=== PATIENT | female | born 1970 | race African-American/Black ===

== ENCOUNTER 2018-08-23 17:15 | Inpatient (IN) ==
[2018-08-23] MEDS ORDERED: ONDANSETRON 4 MG/2 ML VIAL IV STA (17:25)
[2018-08-23] MEDS ORDERED: SODIUM CHLORIDE 0.9% 1,000 ML IV STA (17:25)
[2018-08-23] MEDS ORDERED: ASPIRIN CHEW 81 MG TABLET PO STA (17:26)
[2018-08-23] MEDS ORDERED: MORPHINE 4 MG/1 ML VIAL IV STA (17:31)
[2018-08-23 17:48] LABS: Basophils % 0.4 % (0.0-0.8); Eosinophils % 0.1 % (0.00-10.9); Hematocrit 47.9 VOL% (35.7-47.0); Hemoglobin 15.2 GM/DL (12.0-16.0); Immature Granulocytes % 0.5 %; Immature Granulocytes Absolute 0.05 #; Lymphocytes # 1.7 10*3/uL (1.4-4.0); Lymphocytes % 15.7 % (21.3-54.2); Mean Corpuscular HGB Conc 31.7 GM/DL (32-36); Mean Corpuscular Volume 92.8 FL (87-102); Mean Platelet Volume 11.6 FL (9.6-12.0); Monocytes % 3.6 % (1.7-12.7); Neutrophils % 79.7 % (38.7-73.9); Platelet Count 298 T/CUMM (130-400); Red Blood Count 5.16 MC/CUMM (3.8-5.5); Red Cell Distribution Width 14.4 % (9.3-17.3); White Blood Count 10.9 T/CUMM (4-12)
[2018-08-23 18:00] LABS: Albumin 4.1 G/DL (3.4-5.0); Bilirubin,Total 0.4 MG/DL (0.2-1.0); Calcium 9.7 MG/DL (8.5-10.1); Osmolality,Calculated 283.5 MOS/KG (273-304); Total Protein 9.2 G/DL (6.4-8.3)
[2018-08-23 19:21] LABS: Amorphous Crystals,Urine Occasional /HPF (Few); Apearance,Urine CLEAR (Clear); Barbiturates Screen,Urine Negative (Negative); Benzodiazepines Screen,Urine Negative (Negative); Bilirubin,Urine Negative (Negative); Blood, Urine Negative (Negative); Cannabinoid Screen,Urine Negative (Negative); Glucose,Urine (UA) Negative (Negative); Ketones,Urine Negative (Negative); Nitrite,Urine Negative (Negative); Opiate Screen,Urine Negative (Negative); Phencyclidine Screen,Urine Negative (Negative); Protein,Urine 100 MG/DL; Squamous Epithelial Cell,Urine Occasional /HPF (0-10); Urine Color Yellow (Yellow); Urine Specific Gravity > 1.060 (1.001-1.035); Urine Urobilinogen < 2.0 EU/DL (0.2-1.0)
[2018-08-23] MEDS ORDERED: ONDANSETRON 4 MG/2 ML VIAL IV PRN (21:10)
[2018-08-23] MEDS: LACTATED RINGERS 1,000 ML IV SCH (21:43)
[2018-08-23] MEDS: MORPHINE 4 MG/1 ML VIAL IV PRN (21:51)
[2018-08-24] MEDS: MORPHINE 4 MG/1 ML VIAL IV PRN ×6 (02:25→21:29)
[2018-08-24] MEDS: LACTATED RINGERS 1,000 ML IV SCH ×2 (10:39→13:15)
[2018-08-24] MEDS: FUROSEMIDE 20 MG TABLET PO SCH (18:15)
[2018-08-24] MEDS: amLODIPine 10 MG TABLET PO SCH (18:15)
[2018-08-25] MEDS: LACTATED RINGERS 1,000 ML IV SCH ×4 (00:43→21:19)
[2018-08-25] MEDS: MORPHINE 4 MG/1 ML VIAL IV PRN ×5 (01:33→20:30)
[2018-08-25] MEDS ORDERED: hydrALAZINE 20 MG/1 ML VIAL IV ONE (04:57)
[2018-08-25] MEDS ORDERED: ALBUTEROL/IPRATROPIUM 3 ML NEB RESP TX PRN (08:12)
[2018-08-25] MEDS: FUROSEMIDE 20 MG TABLET PO SCH (08:34)
[2018-08-25] MEDS: CLORAZEPATE 3.75 MG TABLET PO SCH ×2 (08:34→20:33)
[2018-08-25] MEDS: amLODIPine 10 MG TABLET PO SCH (08:35)
[2018-08-25] MEDS ORDERED: METOPROLOL TARTRATE 25 MG TABLET PO SCH (09:00)
[2018-08-25] MEDS ORDERED: hydrALAZINE 25 MG TABLET PO SCH (09:00)
[2018-08-25 09:05] LABS: Basophils % 0.1 % (0.0-0.8); Eosinophils % 0.1 % (0.00-10.9); Immature Granulocytes % 0.4 %; Immature Granulocytes Absolute 0.03 #; Mean Corpuscular Volume 96.8 FL (87-102); Red Cell Distribution Width 14.7 % (9.3-17.3)
[2018-08-25 09:10] LABS: Hematocrit 39.7 VOL% (35.7-47.0); Lymphocytes % 12.6 % (21.3-54.2); Mean Corpuscular HGB Conc 30.5 GM/DL (32-36); Mean Platelet Volume 11.9 FL (9.6-12.0); Monocytes % 6.1 % (1.7-12.7); Neutrophils % 80.7 % (38.7-73.9); White Blood Count 7.9 T/CUMM (4-12)
[2018-08-25 09:19] LABS: Hemoglobin 12.1 GM/DL (12.0-16.0); Platelet Count 230 T/CUMM (130-400)
[2018-08-25 09:21] LABS: Calcium 8.9 MG/DL (8.5-10.1); Osmolality,Calculated 277.7 MOS/KG (273-304)
[2018-08-25 09:27] LABS: Hypochromasia 1+; Lymphocytes 14 % (20-55); Platelet Estimate Adequate; Segmented Neutrophils 81 % (50-85); Total Cells Counted 100
[2018-08-25] MEDS: METOPROLOL TARTRATE 5 MG/5 ML VIAL IV SCH ×2 (11:12→12:24)
[2018-08-25] MEDS ORDERED: GLUCAGON 1 MG VIAL IM PRN (13:10)
[2018-08-25] MEDS ORDERED: DEXTROSE 50% 25 GM/50 ML VIAL IV PRN (13:10)
[2018-08-25] MEDS ORDERED: NICOTINE 21 MG/24 HR PATCH TRANSDERM PRN (13:11)
[2018-08-25 14:11] LABS: Troponin I < 0.015 NG/ML (0.00-0.045)
[2018-08-25] MEDS: PANTOPRAZOLE 40 MG VIAL IV SCH (15:04)
[2018-08-25] MEDS: INSULIN REGULAR 100 UNIT/ML SUBCUT SCH (17:13)
[2018-08-25] MEDS: BACLOFEN 10 MG TABLET PO SCH (20:33)
[2018-08-25] MEDS: levETIRAcetam 500 MG TABLET PO SCH (20:33)
[2018-08-25] MEDS: valACYclovir 500 MG TABLET PO SCH (20:33)
[2018-08-26] MEDS: INSULIN REGULAR 100 UNIT/ML SUBCUT SCH ×4 (00:35→18:24)
[2018-08-26] MEDS: MORPHINE 4 MG/1 ML VIAL IV PRN ×6 (01:05→23:49)
[2018-08-26] MEDS: LACTATED RINGERS 1,000 ML IV SCH ×4 (02:42→21:36)
[2018-08-26 06:00] LABS: Risk Ratio 2.52; VLDL CHOLESTEROL 17.8 MG/DL
[2018-08-26] MEDS: LISINOPRIL 20 MG TABLET PO SCH (08:48)
[2018-08-26] MEDS: FUROSEMIDE 20 MG TABLET PO SCH (08:48)
[2018-08-26] MEDS: amLODIPine 10 MG TABLET PO SCH (08:50)
[2018-08-26] MEDS: valACYclovir 500 MG TABLET PO SCH ×2 (08:50→20:37)
[2018-08-26] MEDS: CLORAZEPATE 3.75 MG TABLET PO SCH ×2 (08:50→20:37)
[2018-08-26] MEDS: FLUoxetine 20 MG CAPSULE PO SCH (08:50)
[2018-08-26] MEDS: levETIRAcetam 500 MG TABLET PO SCH ×2 (08:50→20:38)
[2018-08-26] MEDS: SIMVASTATIN 10 MG TABLET PO SCH (08:50)
[2018-08-26] MEDS ORDERED: LISINOPRIL 20 MG TABLET PO SCH (09:00)
[2018-08-26] MEDS ORDERED: hydroCHLOROthiazide 12.5 MG CAPSULE PO SCH (09:00)
[2018-08-26] MEDS: PANTOPRAZOLE 40 MG VIAL IV SCH (10:00)
[2018-08-26] MEDS: BACLOFEN 10 MG TABLET PO SCH (20:37)
[2018-08-27] MEDS: INSULIN REGULAR 100 UNIT/ML SUBCUT SCH ×4 (00:19→17:54)
[2018-08-27] MEDS: MORPHINE 4 MG/1 ML VIAL IV PRN ×4 (04:14→22:55)
[2018-08-27] MEDS: LACTATED RINGERS 1,000 ML IV SCH ×3 (05:30→19:00)
[2018-08-27 05:48] LABS: Basophils % 0.2 % (0.0-0.8); Eosinophils # 0.1 10*3/uL (0.0-0.87); Eosinophils % 1.1 % (0.00-10.9); Hematocrit 36.5 VOL% (35.7-47.0); Hemoglobin 11.2 GM/DL (12.0-16.0); Immature Granulocytes % 0.4 %; Immature Granulocytes Absolute 0.02 #; Lymphocytes # 1.3 10*3/uL (1.4-4.0); Lymphocytes % 23.5 % (21.3-54.2); Mean Corpuscular HGB Conc 30.7 GM/DL (32-36); Mean Corpuscular Volume 96.6 FL (87-102); Mean Platelet Volume 11.2 FL (9.6-12.0); Neutrophils % 67.8 % (38.7-73.9); Platelet Count 204 T/CUMM (130-400); Red Blood Count 3.78 MC/CUMM (3.8-5.5); Red Cell Distribution Width 14.2 % (9.3-17.3); White Blood Count 5.6 T/CUMM (4-12)
[2018-08-27 06:16] LABS: Calcium 8.9 MG/DL (8.5-10.1); Osmolality,Calculated 274.7 MOS/KG (273-304)
[2018-08-27] MEDS: hydrALAZINE 25 MG TABLET PO SCH ×4 (09:10→21:50)
[2018-08-27] MEDS: hydroCHLOROthiazide 25 MG TABLET PO SCH (09:32)
[2018-08-27] MEDS: LISINOPRIL 20 MG TABLET PO SCH (09:32)
[2018-08-27] MEDS: amLODIPine 10 MG TABLET PO SCH (09:32)
[2018-08-27] MEDS: valACYclovir 500 MG TABLET PO SCH ×3 (09:32→21:50)
[2018-08-27] MEDS: FUROSEMIDE 20 MG TABLET PO SCH ×2 (09:32→09:39)
[2018-08-27] MEDS: SIMVASTATIN 10 MG TABLET PO SCH ×2 (09:32→09:59)
[2018-08-27] MEDS: FLUoxetine 20 MG CAPSULE PO SCH ×2 (09:33→10:00)
[2018-08-27] MEDS: PANTOPRAZOLE 40 MG VIAL IV SCH (09:33)
[2018-08-27] MEDS: CLORAZEPATE 3.75 MG TABLET PO SCH ×3 (09:33→21:50)
[2018-08-27] MEDS: levETIRAcetam 500 MG TABLET PO SCH ×3 (09:33→21:50)
[2018-08-27] MEDS ORDERED: cefOXitin 2,000 MG in SYRINGE 1 EACH IV ONE (09:54)
[2018-08-27] MEDS ORDERED: LIDOCAINE 1%/EPI INJ 20 ML VIAL ONE (11:20)
[2018-08-27] MEDS ORDERED: BUPIVACAINE MPF 0.25% /EPI 30 ML VIAL ONE (11:20)
[2018-08-27] MEDS ORDERED: BUPIVACAINE MPF 0.25% 30 ML VIAL ONE (14:21)
[2018-08-27] MEDS ORDERED: ALBUTEROL/IPRATROPIUM 3 ML NEB RESP TX ONE (14:22)
[2018-08-27 14:26] LABS: Apearance,Urine CLEAR (Clear); Bacteria,Urine Occasional /HPF (Few); Bilirubin,Urine Negative (Negative); Blood, Urine Negative (Negative); Glucose,Urine (UA) Negative (Negative); Ketones,Urine 20 mg/dL (Negative); Mucus,Urine Occasional /LPF (Occasional); Nitrite,Urine Negative (Negative); Protein,Urine Negative; RBC,Urine 3 /HPF (0-4); Squamous Epithelial Cell,Urine Occasional /HPF (0-10); Urine Color Straw (Yellow); Urine Specific Gravity 1.006 (1.001-1.035); Urine Urobilinogen < 2.0 EU/DL (0.2-1.0); WBC,Urine <1 /HPF (0-6)
[2018-08-27] MEDS ORDERED: SEVOFLURANE 1 UNIT/15 MINUTE INH ONE (14:36)
[2018-08-27] MEDS ORDERED: ALBUMIN 5% 12.5 GM/250 ML VIAL IV ONE (14:36)
[2018-08-27] MEDS ORDERED: PROPOFOL 200 MG/20 ML VIAL IV ONE (14:36)
[2018-08-27] MEDS ORDERED: DEXAMETHASONE 4 MG/1 ML VIAL ONE (14:37)
[2018-08-27] MEDS ORDERED: PHENYLEPHRINE 10 MG/1 ML VIAL IV ONE (14:37)
[2018-08-27] MEDS ORDERED: MIDAZOLAM 2 MG/2 ML VIAL ONE (14:37)
[2018-08-27] MEDS ORDERED: ONDANSETRON 4 MG/2 ML VIAL ONE (14:37)
[2018-08-27] MEDS ORDERED: GLYCOPYRROLATE 0.4 MG/2 ML VIAL ONE (14:37)
[2018-08-27] MEDS ORDERED: fentaNYL 100 MCG/2 ML VIAL ONE (14:37)
[2018-08-27] MEDS ORDERED: HYDROmorphone 2 MG/1 ML VIAL ONE ×2 (14:37→15:38)
[2018-08-27] MEDS ORDERED: LACTATED RINGERS 1,000 ML IV ONE (14:38)
[2018-08-27] MEDS ORDERED: PHENYLEPHRINE 1 MG/10 ML SYRINGE IV ONE (14:38)
[2018-08-27] MEDS ORDERED: ROCURONIUM 100 MG/10 ML VIAL IV ONE (14:38)
[2018-08-27] MEDS ORDERED: NEOSTIGMINE 10 MG/10 ML VIAL ONE (14:38)
[2018-08-27] MEDS ORDERED: SUCCINYLCHOLINE 200 MG/10 ML VIAL ONE (14:38)
[2018-08-27] MEDS ORDERED: HYDROmorphone 2 MG/1 ML VIAL IV ONE (15:38)
[2018-08-27] MEDS: BACLOFEN 10 MG TABLET PO SCH (21:50)
[2018-08-28] MEDS: INSULIN REGULAR 100 UNIT/ML SUBCUT SCH ×4 (01:24→18:59)
[2018-08-28] MEDS: MORPHINE 4 MG/1 ML VIAL IV PRN ×5 (02:35→21:39)
[2018-08-28] MEDS ORDERED: SODIUM CHLORIDE 0.9% 250 ML IV ONE (03:40)
[2018-08-28 04:09] LABS: Basophils % 0.3 % (0.0-0.8); Eosinophils % 0.3 % (0.00-10.9); Hematocrit 35.9 VOL% (35.7-47.0); Hemoglobin 11.4 GM/DL (12.0-16.0); Immature Granulocytes % 0.4 %; Immature Granulocytes Absolute 0.03 #; Lymphocytes # 0.8 10*3/uL (1.4-4.0); Lymphocytes % 11.6 % (21.3-54.2); Mean Corpuscular HGB Conc 31.8 GM/DL (32-36); Mean Corpuscular Volume 94.2 FL (87-102); Mean Platelet Volume 11.4 FL (9.6-12.0); Monocytes % 5.8 % (1.7-12.7); Neutrophils % 81.6 % (38.7-73.9); Platelet Count 232 T/CUMM (130-400); Red Blood Count 3.81 MC/CUMM (3.8-5.5); Red Cell Distribution Width 13.8 % (9.3-17.3); White Blood Count 6.7 T/CUMM (4-12)
[2018-08-28] MEDS: LACTATED RINGERS 1,000 ML IV SCH ×3 (04:12→21:34)
[2018-08-28 04:42] LABS: Alanine Aminotransferase < 9 U/L (13-56); Albumin 2.5 G/DL (3.4-5.0); Alkaline Phosphatase 61 U/L (45-117); Aspartate Amino Transferase 10 U/L (0-37); Blood Urea Nitrogen 14 MG/DL (7-18); Calcium 8.3 MG/DL (8.5-10.1); Glucose 107 MG/DL (74-106); Osmolality,Calculated 273.8 MOS/KG (273-304); Total Protein 5.7 G/DL (6.4-8.3)
[2018-08-28 04:46] LABS: Hypochromasia Slight; Platelet Estimate Normal
[2018-08-28] MEDS: valACYclovir 500 MG TABLET PO SCH ×2 (09:53→21:34)
[2018-08-28] MEDS: FLUoxetine 20 MG CAPSULE PO SCH (09:53)
[2018-08-28] MEDS: FUROSEMIDE 20 MG TABLET PO SCH (09:53)
[2018-08-28] MEDS: levETIRAcetam 500 MG TABLET PO SCH ×2 (09:53→21:34)
[2018-08-28] MEDS: CLORAZEPATE 3.75 MG TABLET PO SCH ×2 (09:53→21:34)
[2018-08-28] MEDS: LISINOPRIL 20 MG TABLET PO SCH (09:53)
[2018-08-28] MEDS: PANTOPRAZOLE 40 MG TABLET PO SCH (09:53)
[2018-08-28] MEDS: hydrALAZINE 25 MG TABLET PO SCH ×3 (09:53→21:34)
[2018-08-28] MEDS: amLODIPine 10 MG TABLET PO SCH (09:53)
[2018-08-28] MEDS: hydroCHLOROthiazide 25 MG TABLET PO SCH (09:53)
[2018-08-28] MEDS: SIMVASTATIN 10 MG TABLET PO SCH (10:37)
[2018-08-28] MEDS ORDERED: MAGNESIUM SULF RIDER 4 GM in PREMIX 1 EACH IV PRN (13:34)
[2018-08-28] MEDS: MAGNESIUM SULF RIDER 2 GM in PREMIX 1 EACH IV PRN ×2 (15:26→17:48)
[2018-08-28] MEDS: BACLOFEN 10 MG TABLET PO SCH (21:34)
[2018-08-29] MEDS: MORPHINE 4 MG/1 ML VIAL IV PRN ×6 (00:50→21:26)
[2018-08-29] MEDS: INSULIN REGULAR 100 UNIT/ML SUBCUT SCH ×4 (01:16→18:41)
[2018-08-29] MEDS: LACTATED RINGERS 1,000 ML IV SCH ×2 (05:34→14:50)
[2018-08-29] MEDS: FUROSEMIDE 20 MG TABLET PO SCH (09:19)
[2018-08-29] MEDS: CLORAZEPATE 3.75 MG TABLET PO SCH ×2 (09:19→21:24)
[2018-08-29] MEDS: valACYclovir 500 MG TABLET PO SCH ×2 (09:19→21:24)
[2018-08-29] MEDS: LISINOPRIL 20 MG TABLET PO SCH (09:19)
[2018-08-29] MEDS: amLODIPine 10 MG TABLET PO SCH (09:20)
[2018-08-29] MEDS: FLUoxetine 20 MG CAPSULE PO SCH (09:20)
[2018-08-29] MEDS: hydroCHLOROthiazide 25 MG TABLET PO SCH (09:20)
[2018-08-29] MEDS: hydrALAZINE 25 MG TABLET PO SCH ×3 (09:20→21:24)
[2018-08-29] MEDS: levETIRAcetam 500 MG TABLET PO SCH ×2 (09:21→21:24)
[2018-08-29] MEDS: SIMVASTATIN 10 MG TABLET PO SCH (09:21)
[2018-08-29] MEDS: PANTOPRAZOLE 40 MG TABLET PO SCH (09:21)
[2018-08-29] MEDS: BACLOFEN 10 MG TABLET PO SCH (21:24)
[2018-08-30] MEDS: INSULIN REGULAR 100 UNIT/ML SUBCUT SCH ×4 (00:21→18:17)
[2018-08-30] MEDS: MORPHINE 4 MG/1 ML VIAL IV PRN ×7 (01:39→21:58)
[2018-08-30] MEDS: LACTATED RINGERS 1,000 ML IV SCH ×2 (01:51→04:20)
[2018-08-30 05:00] LABS: Basophils % 0.2 % (0.0-0.8); Eosinophils # 0.1 10*3/uL (0.0-0.87); Eosinophils % 0.9 % (0.00-10.9); Hematocrit 31.8 VOL% (35.7-47.0); Immature Granulocytes % 0.6 %; Immature Granulocytes Absolute 0.04 #; Lymphocytes # 0.9 10*3/uL (1.4-4.0); Lymphocytes % 14.3 % (21.3-54.2); Mean Corpuscular HGB Conc 31.4 GM/DL (32-36); Mean Corpuscular Volume 94.4 FL (87-102); Mean Platelet Volume 11.3 FL (9.6-12.0); Monocytes % 6.8 % (1.7-12.7); Neutrophils % 77.2 % (38.7-73.9); Platelet Count 206 T/CUMM (130-400); Red Blood Count 3.37 MC/CUMM (3.8-5.5); Red Cell Distribution Width 14.2 % (9.3-17.3); White Blood Count 6.4 T/CUMM (4-12)
[2018-08-30 05:25] LABS: Calcium 8.7 MG/DL (8.5-10.1); Osmolality,Calculated 274.7 MOS/KG (273-304)
[2018-08-30 05:41] LABS: Anisocytosis Slight; Microcytosis 1+; Platelet Estimate Normal
[2018-08-30] MEDS: LISINOPRIL 20 MG TABLET PO SCH (08:51)
[2018-08-30] MEDS: amLODIPine 10 MG TABLET PO SCH (08:51)
[2018-08-30] MEDS: hydroCHLOROthiazide 25 MG TABLET PO SCH (08:51)
[2018-08-30] MEDS: FUROSEMIDE 20 MG TABLET PO SCH (08:52)
[2018-08-30] MEDS: SIMVASTATIN 10 MG TABLET PO SCH (08:52)
[2018-08-30] MEDS: PANTOPRAZOLE 40 MG TABLET PO SCH (08:52)
[2018-08-30] MEDS: valACYclovir 500 MG TABLET PO SCH ×2 (08:52→21:57)
[2018-08-30] MEDS: levETIRAcetam 500 MG TABLET PO SCH ×2 (08:52→21:57)
[2018-08-30] MEDS: FLUoxetine 20 MG CAPSULE PO SCH (08:52)
[2018-08-30] MEDS: hydrALAZINE 25 MG TABLET PO SCH ×3 (08:52→21:57)
[2018-08-30] MEDS: CLORAZEPATE 3.75 MG TABLET PO SCH ×2 (08:52→21:57)
[2018-08-30] MEDS: ENOXAPARIN 40 MG/0.4 ML SYRINGE SUBCUT SCH (11:26)
[2018-08-30] MEDS: BACLOFEN 10 MG TABLET PO SCH (21:57)
[2018-08-31] MEDS: INSULIN REGULAR 100 UNIT/ML SUBCUT SCH ×4 (00:21→17:38)
[2018-08-31] MEDS: MORPHINE 4 MG/1 ML VIAL IV PRN ×6 (03:11→22:36)
[2018-08-31 04:25] LABS: Basophils % 0.3 % (0.0-0.8); Eosinophils # 0.1 10*3/uL (0.0-0.87); Eosinophils % 1.1 % (0.00-10.9); Hematocrit 32.3 VOL% (35.7-47.0); Immature Granulocytes % 1.2 %; Immature Granulocytes Absolute 0.09 #; Lymphocytes # 1.2 10*3/uL (1.4-4.0); Lymphocytes % 16.7 % (21.3-54.2); Mean Corpuscular Volume 94.7 FL (87-102); Monocytes % 9.2 % (1.7-12.7); Neutrophils % 71.5 % (38.7-73.9); Platelet Count 237 T/CUMM (130-400); Red Blood Count 3.41 MC/CUMM (3.8-5.5); Red Cell Distribution Width 13.9 % (9.3-17.3); White Blood Count 7.4 T/CUMM (4-12)
[2018-08-31 04:59] LABS: Eosinophils 1 % (0-10); Lymphocytes 21 % (20-55); Segmented Neutrophils 75 % (50-85); Total Cells Counted 100
[2018-08-31 05:00] LABS: Anisocytosis 1+; Platelet Estimate Adequate
[2018-08-31] MEDS ORDERED: POLYETHYLENE GLYCOL POWDER 17 GM PACK PO PRN (09:00)
[2018-08-31] MEDS: DOCUSATE SODIUM 100 MG CAPSULE PO SCH ×2 (09:23→22:59)
[2018-08-31] MEDS: FUROSEMIDE 20 MG TABLET PO SCH (09:23)
[2018-08-31] MEDS: amLODIPine 10 MG TABLET PO SCH (09:23)
[2018-08-31] MEDS: PANTOPRAZOLE 40 MG TABLET PO SCH (09:23)
[2018-08-31] MEDS: FLUoxetine 20 MG CAPSULE PO SCH (09:23)
[2018-08-31] MEDS: LISINOPRIL 20 MG TABLET PO SCH (09:23)
[2018-08-31] MEDS: levETIRAcetam 500 MG TABLET PO SCH ×2 (09:23→21:26)
[2018-08-31] MEDS: valACYclovir 500 MG TABLET PO SCH ×2 (09:23→21:26)
[2018-08-31] MEDS: CLORAZEPATE 3.75 MG TABLET PO SCH ×2 (09:23→21:26)
[2018-08-31] MEDS: hydroCHLOROthiazide 25 MG TABLET PO SCH (09:23)
[2018-08-31] MEDS: hydrALAZINE 25 MG TABLET PO SCH ×3 (09:23→21:26)
[2018-08-31] MEDS: ENOXAPARIN 40 MG/0.4 ML SYRINGE SUBCUT SCH (09:24)
[2018-08-31] MEDS: SIMVASTATIN 10 MG TABLET PO SCH (09:24)
[2018-08-31] MEDS: BACLOFEN 10 MG TABLET PO SCH (21:26)
[2018-09-01] MEDS: INSULIN REGULAR 100 UNIT/ML SUBCUT SCH ×3 (00:25→13:49)
[2018-09-01] MEDS: MORPHINE 4 MG/1 ML VIAL IV PRN ×2 (06:27→09:40)
[2018-09-01] MEDS: PANTOPRAZOLE 40 MG TABLET PO SCH (09:37)
[2018-09-01] MEDS: FLUoxetine 20 MG CAPSULE PO SCH (09:37)
[2018-09-01] MEDS: FUROSEMIDE 20 MG TABLET PO SCH (09:37)
[2018-09-01] MEDS: hydrALAZINE 25 MG TABLET PO SCH (09:37)
[2018-09-01] MEDS: DOCUSATE SODIUM 100 MG CAPSULE PO SCH (09:37)
[2018-09-01] MEDS: CLORAZEPATE 3.75 MG TABLET PO SCH (09:37)
[2018-09-01] MEDS: LISINOPRIL 20 MG TABLET PO SCH (09:37)
[2018-09-01] MEDS: hydroCHLOROthiazide 25 MG TABLET PO SCH (09:37)
[2018-09-01] MEDS: SIMVASTATIN 10 MG TABLET PO SCH (09:37)
[2018-09-01] MEDS: valACYclovir 500 MG TABLET PO SCH (09:38)
[2018-09-01] MEDS: levETIRAcetam 500 MG TABLET PO SCH (09:38)
[2018-09-01] MEDS: amLODIPine 10 MG TABLET PO SCH (09:38)
[2018-09-01] MEDS: ENOXAPARIN 40 MG/0.4 ML SYRINGE SUBCUT SCH (09:40)
[2018-09-01] MEDS ORDERED: BISACODYL 10 MG SUPP RECTAL PRN (11:15)
[2018-09-01 11:54] VITALS: BP 101/61
[2018-09-01] MEDS ORDERED: SODIUM PHOSPHATE ENEMA 133 ML BOTTLE RECTAL PRN (15:09)
[2018-09-01] MEDS ORDERED: SODIUM PHOSPHATE ENEMA 133 ML BOTTLE RECTAL ONE (15:11)
== END 2018-09-01 16:12 | disposition home health service (06) | DRG 230 ==
LOC: EDUNIT# → N.ED 17:15 → N.EDINP 18:46 → N.3E 20:30 → N.CC 08-27 16:25 → N.3E 08-29 17:08
PROVIDERS: ADMIT Surgery; ATTEND Surgery

== ENCOUNTER 2018-10-02 17:48 | Observation (INO) ==
[2018-10-02] MEDS ORDERED: ONDANSETRON 4 MG/2 ML VIAL IV STA (18:42)
[2018-10-02] MEDS ORDERED: KETOROLAC 30 MG/1 ML VIAL IV STA (18:42)
[2018-10-02] MEDS ORDERED: SODIUM CHLORIDE 0.9% 500 ML IV STA (18:42)
[2018-10-02] MEDS ORDERED: BICILLIN LA 2,400,000 UNIT/4 ML SYRINGE IM STA (18:42)
[2018-10-02 19:13] LABS: Basophils % 0.4 % (0.0-0.8); Eosinophils # 0.1 10*3/uL (0.0-0.87); Eosinophils % 0.9 % (0.00-10.9); Hematocrit 45.3 VOL% (35.7-47.0); Hemoglobin 14.5 GM/DL (12.0-16.0); Immature Granulocytes % 0.9 %; Lymphocytes # 2.7 10*3/uL (1.4-4.0); Lymphocytes % 25.7 % (21.3-54.2); Mean Corpuscular Volume 90.4 FL (87-102); Mean Platelet Volume 11.3 FL (9.6-12.0); Monocytes % 5.1 % (1.7-12.7); Platelet Count 319 T/CUMM (130-400); Red Blood Count 5.01 MC/CUMM (3.8-5.5); Red Cell Distribution Width 14.6 % (9.3-17.3); White Blood Count 10.7 T/CUMM (4-12)
[2018-10-02 19:36] LABS: Albumin 3.9 G/DL (3.4-5.0); Bilirubin,Total 0.5 MG/DL (0.2-1.0); Osmolality,Calculated 279.1 MOS/KG (273-304)
[2018-10-02] MEDS ORDERED: SODIUM CHLORIDE 0.9% 1,000 ML IV STA ×2 (19:42→20:27)
[2018-10-02] MEDS ORDERED: MAGNESIUM SULF RIDER 2 GM in PREMIX 1 EACH IV STA (19:43)
[2018-10-02] MEDS ORDERED: PIPERACILLIN/TAZOBACTAM 3,375 MG in SODIUM CHLORIDE 0.9% 100 ML IV STA (20:27)
[2018-10-02] MEDS ORDERED: DEXTROSE 50% 25 GM/50 ML VIAL IV PRN (22:21)
[2018-10-02] MEDS ORDERED: GLUCAGON 1 MG VIAL IM PRN (22:21)
[2018-10-02] MEDS ORDERED: ALBUTEROL 1.25 MG/3 ML NEB RESP TX PRN (22:21)
[2018-10-02] MEDS ORDERED: HYDROmorphone 2 MG/1 ML VIAL IV PRN (22:21)
[2018-10-02] MEDS ORDERED: ACETAMINOPHEN 325 MG TABLET PO PRN (22:21)
[2018-10-02] MEDS: PIPERACILLIN/TAZOBACTAM 3,375 MG in SODIUM CHLORIDE 0.9% 100 ML IV SCH (23:00)
[2018-10-02] MEDS: SODIUM CHLORIDE 0.9% 1,000 ML IV SCH (23:00)
[2018-10-02] MEDS: valACYclovir 500 MG TABLET PO SCH (23:34)
[2018-10-02] MEDS: BUDESONIDE/FORMOTEROL 160-4.5 INHALER 6 GM INH SCH (23:35)
[2018-10-02] MEDS: PANTOPRAZOLE 40 MG TABLET PO SCH (23:35)
[2018-10-02] MEDS: levETIRAcetam 500 MG TABLET PO SCH (23:35)
[2018-10-02] MEDS: OXYBUTYNIN 5 MG TABLET PO SCH (23:35)
[2018-10-02] MEDS: SULFAMETHOX/TRIMETHOPRIM 800-160 MG TABLET PO SCH (23:35)
[2018-10-02] MEDS: BACLOFEN 10 MG TABLET PO SCH (23:35)
[2018-10-03] MEDS: INSULIN REGULAR 100 UNIT/ML SUBCUT SCH ×5 (01:22→23:49)
[2018-10-03 02:01] LABS: Apearance,Urine Slightly Hazy (Clear); Bilirubin,Urine Negative (Negative); Blood, Urine Negative (Negative); Glucose,Urine (UA) Negative (Negative); Ketones,Urine Negative (Negative); Mucus,Urine Occasional /LPF (Occasional); Nitrite,Urine Negative (Negative); Protein,Urine 30 MG/DL; RBC,Urine 2 /HPF (0-4); Squamous Epithelial Cell,Urine Occasional /HPF (0-10); Urine Color Yellow (Yellow); Urine Specific Gravity > 1.060 (1.001-1.035); WBC,Urine 1 /HPF (0-6)
[2018-10-03 02:07] LABS: Barbiturates Screen,Urine Negative (Negative); Benzodiazepines Screen,Urine Negative (Negative); Cannabinoid Screen,Urine Negative (Negative); Opiate Screen,Urine Negative (Negative); Phencyclidine Screen,Urine Negative (Negative)
[2018-10-03 04:46] LABS: Basophils % 0.3 % (0.0-0.8); Eosinophils # 0.1 10*3/uL (0.0-0.87); Eosinophils % 1.2 % (0.00-10.9); Hematocrit 36.5 VOL% (35.7-47.0); Hemoglobin 11.5 GM/DL (12.0-16.0); Immature Granulocytes % 0.6 %; Immature Granulocytes Absolute 0.05 #; Lymphocytes # 2.7 10*3/uL (1.4-4.0); Lymphocytes % 29.9 % (21.3-54.2); Mean Corpuscular HGB Conc 31.5 GM/DL (32-36); Mean Corpuscular Volume 91.7 FL (87-102); Mean Platelet Volume 11.5 FL (9.6-12.0); Monocytes % 5.9 % (1.7-12.7); Neutrophils % 62.1 % (38.7-73.9); Platelet Count 251 T/CUMM (130-400); Red Blood Count 3.98 MC/CUMM (3.8-5.5); Red Cell Distribution Width 14.6 % (9.3-17.3); White Blood Count 8.9 T/CUMM (4-12)
[2018-10-03] MEDS: SODIUM CHLORIDE 0.9% 1,000 ML IV SCH ×3 (05:00→17:26)
[2018-10-03 05:16] LABS: Bilirubin,Total 0.5 MG/DL (0.2-1.0); Calcium 8.7 MG/DL (8.5-10.1); Total Protein 6.9 G/DL (6.4-8.3)
[2018-10-03] MEDS: PIPERACILLIN/TAZOBACTAM 3,375 MG in SODIUM CHLORIDE 0.9% 100 ML IV SCH (06:20)
[2018-10-03] MEDS ORDERED: PANTOPRAZOLE 40 MG TABLET PO SCH (09:00)
[2018-10-03] MEDS ORDERED: LISINOPRIL 20 MG TABLET PO SCH (09:00)
[2018-10-03] MEDS ORDERED: FUROSEMIDE 20 MG TABLET PO SCH (09:00)
[2018-10-03] MEDS ORDERED: metFORMIN 850 MG TABLET PO SCH (09:00)
[2018-10-03] MEDS: SULFAMETHOX/TRIMETHOPRIM 800-160 MG TABLET PO SCH ×2 (10:20→20:49)
[2018-10-03] MEDS: OXYBUTYNIN 5 MG TABLET PO SCH ×2 (10:21→20:49)
[2018-10-03] MEDS: FLUoxetine 20 MG CAPSULE PO SCH (10:21)
[2018-10-03] MEDS: PANTOPRAZOLE 40 MG TABLET PO SCH ×2 (10:21→20:49)
[2018-10-03] MEDS: hydroCHLOROthiazide 25 MG TABLET PO SCH (10:21)
[2018-10-03] MEDS: levETIRAcetam 500 MG TABLET PO SCH ×2 (10:21→20:49)
[2018-10-03] MEDS: amLODIPine 10 MG TABLET PO SCH (10:21)
[2018-10-03] MEDS: SIMVASTATIN 10 MG TABLET PO SCH (10:22)
[2018-10-03] MEDS: valACYclovir 500 MG TABLET PO SCH ×2 (10:22→20:49)
[2018-10-03] MEDS: BUDESONIDE/FORMOTEROL 160-4.5 INHALER 6 GM INH SCH ×2 (10:22→20:50)
[2018-10-03] MEDS ORDERED: CYCLOBENZAPRINE 10 MG TABLET PO PRN (10:33)
[2018-10-03] MEDS ORDERED: GLUCAGON 1 MG VIAL IM PRN (13:20)
[2018-10-03] MEDS ORDERED: DEXTROSE 50% 25 GM/50 ML VIAL IV PRN (13:20)
[2018-10-03] MEDS: ENOXAPARIN 40 MG/0.4 ML SYRINGE SUBCUT SCH (14:11)
[2018-10-03] MEDS: BACLOFEN 10 MG TABLET PO SCH (20:49)
[2018-10-04] MEDS: INSULIN REGULAR 100 UNIT/ML SUBCUT SCH ×3 (05:40→18:27)
[2018-10-04 05:55] LABS: Calcium 8.4 MG/DL (8.5-10.1); Osmolality,Calculated 278.7 MOS/KG (273-304)
[2018-10-04] MEDS: BUDESONIDE/FORMOTEROL 160-4.5 INHALER 6 GM INH SCH ×2 (09:30→21:06)
[2018-10-04] MEDS: SODIUM CHLORIDE 0.9% 1,000 ML IV SCH ×3 (09:45→21:06)
[2018-10-04] MEDS: SULFAMETHOX/TRIMETHOPRIM 800-160 MG TABLET PO SCH ×2 (09:46→21:05)
[2018-10-04] MEDS: hydroCHLOROthiazide 25 MG TABLET PO SCH (09:46)
[2018-10-04] MEDS: valACYclovir 500 MG TABLET PO SCH ×2 (09:46→21:05)
[2018-10-04] MEDS: SIMVASTATIN 10 MG TABLET PO SCH (09:47)
[2018-10-04] MEDS: amLODIPine 10 MG TABLET PO SCH (09:47)
[2018-10-04] MEDS: PANTOPRAZOLE 40 MG TABLET PO SCH ×2 (09:47→21:05)
[2018-10-04] MEDS: levETIRAcetam 500 MG TABLET PO SCH ×2 (09:47→21:05)
[2018-10-04] MEDS: FLUoxetine 20 MG CAPSULE PO SCH (09:47)
[2018-10-04] MEDS: OXYBUTYNIN 5 MG TABLET PO SCH ×2 (09:47→21:05)
[2018-10-04] MEDS: hydrALAZINE 25 MG TABLET PO SCH ×2 (14:03→21:05)
[2018-10-04] MEDS: ENOXAPARIN 40 MG/0.4 ML SYRINGE SUBCUT SCH (14:03)
[2018-10-04] MEDS: ONDANSETRON 4 MG/2 ML VIAL IV PRN (18:27)
[2018-10-04] MEDS: BACLOFEN 10 MG TABLET PO SCH (21:05)
[2018-10-05] MEDS: INSULIN REGULAR 100 UNIT/ML SUBCUT SCH ×2 (01:00→05:17)
[2018-10-05] MEDS: ONDANSETRON 4 MG/2 ML VIAL IV PRN (01:17)
[2018-10-05] MEDS: SODIUM CHLORIDE 0.9% 1,000 ML IV SCH (02:31)
[2018-10-05 05:24] LABS: Basophils % 0.4 % (0.0-0.8); Eosinophils # 0.1 10*3/uL (0.0-0.87); Eosinophils % 2.4 % (0.00-10.9); Immature Granulocytes % 0.6 %; Immature Granulocytes Absolute 0.03 #; Lymphocytes # 2.4 10*3/uL (1.4-4.0); Lymphocytes % 44.1 % (21.3-54.2); Mean Corpuscular HGB Conc 31.3 GM/DL (32-36); Mean Corpuscular Volume 92.8 FL (87-102); Mean Platelet Volume 11.4 FL (9.6-12.0); Monocytes % 6.7 % (1.7-12.7); Neutrophils % 45.8 % (38.7-73.9); Platelet Count 214 T/CUMM (130-400); Red Blood Count 3.45 MC/CUMM (3.8-5.5); Red Cell Distribution Width 14.6 % (9.3-17.3); White Blood Count 5.4 T/CUMM (4-12)
[2018-10-05 05:32] LABS: Calcium 8.7 MG/DL (8.5-10.1); Osmolality,Calculated 275.8 MOS/KG (273-304)
[2018-10-05 05:37] LABS: Risk Ratio 3.64; VLDL CHOLESTEROL 23.8 MG/DL
[2018-10-05 07:54] VITALS: BP 126/71
[2018-10-05] MEDS: levETIRAcetam 500 MG TABLET PO SCH (08:56)
[2018-10-05] MEDS: hydrALAZINE 25 MG TABLET PO SCH (08:56)
[2018-10-05] MEDS: SIMVASTATIN 10 MG TABLET PO SCH (08:57)
[2018-10-05] MEDS: FLUoxetine 20 MG CAPSULE PO SCH (08:57)
[2018-10-05] MEDS: amLODIPine 10 MG TABLET PO SCH (08:57)
[2018-10-05] MEDS: valACYclovir 500 MG TABLET PO SCH (08:57)
[2018-10-05] MEDS: OXYBUTYNIN 5 MG TABLET PO SCH (08:57)
[2018-10-05] MEDS: PANTOPRAZOLE 40 MG TABLET PO SCH (08:57)
[2018-10-05] MEDS: hydroCHLOROthiazide 25 MG TABLET PO SCH (08:57)
[2018-10-05] MEDS: BUDESONIDE/FORMOTEROL 160-4.5 INHALER 6 GM INH SCH (08:57)
== END 2018-10-05 11:19 | disposition home or self-care (01) ==
LOC: EDUNIT# → EDBD → N.ED 17:48 → N.EDINP 20:30 → INTOOBSV 20:30 → N.3E 21:29
PROVIDERS: ADMIT Surgery; ATTEND Surgery

== ENCOUNTER 2021-07-15 19:28 | Observation (INO) ==
[2021-07-15 20:25] LABS: Basophils % 0.2 % (0.0-0.8); Eosinophils # 0.1 10*3/uL (0.0-0.87); Eosinophils % 0.8 % (0.00-10.9); Hematocrit 35.5 VOL% (35.7-47.0); Hemoglobin 11.3 GM/DL (12.0-16.0); Immature Granulocytes % 0.5 %; Immature Granulocytes Absolute 0.06 #; Lymphocytes # 1.9 10*3/uL (1.4-4.0); Lymphocytes % 15.3 % (21.3-54.2); Mean Corpuscular HGB Conc 31.8 GM/DL (32-36); Mean Corpuscular Volume 90.8 FL (87-102); Monocytes # 0.5 10*3/uL (0.11-0.8); Monocytes % 4.3 % (1.7-12.7); Neutrophils % 78.9 % (38.7-73.9); Platelet Count 220 T/CUMM (130-400); Red Blood Count 3.91 MC/CUMM (3.8-5.5); Red Cell Distribution Width 14.2 % (9.3-17.3); White Blood Count 12.6 T/CUMM (4-12)
[2021-07-15 20:47] LABS: Bilirubin,Total 0.4 MG/DL (0.20-1.00); Calcium 8.7 MG/DL (8.5-10.1); Osmolality,Calculated 277.7 MOS/KG (273-304); Potassium 3.6 MMOL/L (3.5-5.1); Total Protein 7.3 G/DL (6.4-8.2)
[2021-07-15 21:26] LABS: Bacteria,Urine Many /HPF (Few); Bilirubin,Urine Negative (Negative); Blood, Urine Moderate mg/dL (Negative); Glucose,Urine (UA) Negative (Negative); Hyaline Casts,Urine 3 /LPF (0-3); Ketones,Urine Negative (Negative); Mucus,Urine Occasional /LPF (Occasional); Nitrite,Urine Negative (Negative); Protein,Urine Negative (Negative); RBC,Urine 12 /HPF (0-4); Squamous Epithelial Cell,Urine Occasional /HPF (0-10); Urine Appearance Clear (Clear); Urine Color Yellow (Yellow); Urine Specific Gravity 1.015 (1.001-1.035); Urine Urobilinogen 0.2 eU/dL (<2.0); Urine pH 5.5 (4.5-8.0)
[2021-07-15 21:39] LABS: Barbiturates Screen,Urine Negative (Negative); Benzodiazepines Screen,Urine Negative (Negative); Cannabinoid Screen,Urine Negative (Negative); Opiate Screen,Urine Negative (Negative); Phencyclidine Screen,Urine Negative (Negative)
[2021-07-15] MEDS ORDERED: LEVOFLOXACIN INJ 750 MG/150 ML PREMIX IV STA (22:30)
[2021-07-16] MEDS ORDERED: GLUCAGON 1 MG VIAL IM PRN (00:24)
[2021-07-16] MEDS ORDERED: ONDANSETRON 4 MG/2 ML VIAL IV PRN (00:28)
[2021-07-16] MEDS ORDERED: DEXTROSE 10% 250 ML BAG IV PRN (00:33)
[2021-07-16 04:44] LABS: Basophils % 0.2 % (0.0-0.8); Eosinophils # 0.1 10*3/uL (0.0-0.87); Eosinophils % 1.3 % (0.00-10.9); Hemoglobin 10.5 GM/DL (12.0-16.0); Immature Granulocytes % 0.4 %; Immature Granulocytes Absolute 0.04 #; Lymphocytes # 1.7 10*3/uL (1.4-4.0); Lymphocytes % 18.9 % (21.3-54.2); Mean Corpuscular HGB Conc 31.8 GM/DL (32-36); Mean Corpuscular Volume 90.4 FL (87-102); Mean Platelet Volume 10.9 FL (9.6-12.0); Monocytes # 0.5 10*3/uL (0.11-0.8); Monocytes % 5.1 % (1.7-12.7); Neutrophils % 74.1 % (38.7-73.9); Platelet Count 209 T/CUMM (130-400); Red Blood Count 3.65 MC/CUMM (3.8-5.5); White Blood Count 9.2 T/CUMM (4-12)
[2021-07-16 05:26] LABS: Albumin 2.9 G/DL (3.4-5.0); Bilirubin,Total 0.4 MG/DL (0.20-1.00); Calcium 8.5 MG/DL (8.5-10.1); Osmolality,Calculated 280.5 MOS/KG (273-304); Potassium 3.3 MMOL/L (3.5-5.1); Risk Ratio 2.72; Thyroid Stimulating Hormone 0.959 uIU/ml (0.358-3.74); VLDL Cholesterol 18.6 MG/DL
[2021-07-16] MEDS ORDERED: MAGNESIUM SULF RIDER 2 GM/50 ML PREMIX IV PRN (07:07)
[2021-07-16] MEDS ORDERED: MAGNESIUM SULF RIDER 4 GM/100 ML PREMIX IV PRN (07:07)
[2021-07-16] MEDS ORDERED: predniSONE 5 MG TABLET PO SCH (09:00)
[2021-07-16] MEDS: methylPREDNISolone SOD SUC 40 MG/1 ML VIAL IV SCH ×3 (09:10→22:01)
[2021-07-16] MEDS: PANTOPRAZOLE 40 MG TABLET PO SCH (09:10)
[2021-07-16] MEDS: INSULIN LISPRO 100 UNIT/ML SUBCUT SCH ×4 (09:25→21:31)
[2021-07-16] MEDS: ALBUTEROL/IPRATROPIUM 3 ML NEB RESP TX SCH ×2 (13:45→19:35)
[2021-07-16] MEDS: POTASSIUM CHLORIDE 20 MEQ TABLET PO PRN (21:31)
[2021-07-16] MEDS: LEVOFLOXACIN 750 MG TABLET PO SCH (21:32)
[2021-07-17] MEDS: ALBUTEROL/IPRATROPIUM 3 ML NEB RESP TX SCH ×4 (00:30→19:25)
[2021-07-17] MEDS: POTASSIUM CHLORIDE 20 MEQ TABLET PO PRN (02:20)
[2021-07-17 05:02] LABS: Basophils % 0.1 % (0.0-0.8); Hematocrit 34.9 VOL% (35.7-47.0); Hemoglobin 11.2 GM/DL (12.0-16.0); Immature Granulocytes % 0.5 %; Immature Granulocytes Absolute 0.06 #; Lymphocytes # 0.8 10*3/uL (1.4-4.0); Lymphocytes % 6.5 % (21.3-54.2); Mean Corpuscular HGB Conc 32.1 GM/DL (32-36); Mean Corpuscular Volume 89.5 FL (87-102); Mean Platelet Volume 11.2 FL (9.6-12.0); Monocytes # 0.1 10*3/uL (0.11-0.8); Monocytes % 1.1 % (1.7-12.7); Neutrophils % 91.8 % (38.7-73.9); Platelet Count 223 T/CUMM (130-400); Red Cell Distribution Width 13.6 % (9.3-17.3)
[2021-07-17 05:28] LABS: Calcium 9.3 MG/DL (8.5-10.1); Osmolality,Calculated 277.2 MOS/KG (273-304); Potassium 4.2 MMOL/L (3.5-5.1)
[2021-07-17 05:34] LABS: Band Neutrophils 2 % (0-10); Lymphocytes 5 % (20-55); Total Cells Counted 100
[2021-07-17 05:35] LABS: Microcytosis Slight
[2021-07-17] MEDS: INSULIN LISPRO 100 UNIT/ML SUBCUT SCH ×4 (07:35→20:26)
[2021-07-17] MEDS: QUEtiapine 100 MG TABLET PO SCH (10:20)
[2021-07-17] MEDS: levETIRAcetam 500 MG TABLET PO SCH ×2 (10:20→20:26)
[2021-07-17] MEDS: LINACLOTIDE 145 MCG CAPSULE PO SCH (10:20)
[2021-07-17] MEDS: METOPROLOL SUCCINATE XL 25 MG TABLET PO SCH (10:20)
[2021-07-17] MEDS: GABAPENTIN 300 MG CAPSULE PO SCH ×3 (10:20→20:26)
[2021-07-17] MEDS: LOSARTAN 50 MG TABLET PO SCH (10:20)
[2021-07-17] MEDS: metFORMIN 850 MG TABLET PO SCH (10:20)
[2021-07-17] MEDS: amLODIPine 10 MG TABLET PO SCH (10:20)
[2021-07-17] MEDS: predniSONE 20 MG TABLET PO SCH (10:20)
[2021-07-17] MEDS: PANTOPRAZOLE 40 MG TABLET PO SCH (10:20)
[2021-07-17] MEDS: OXYBUTYNIN 5 MG TABLET PO SCH ×2 (10:20→20:25)
[2021-07-17] MEDS: BUDESONIDE/FORMOTEROL 160-4.5 INHALER 6 GM INH SCH ×2 (12:09→20:34)
[2021-07-17] MEDS: methylPREDNISolone SOD SUC 40 MG/1 ML VIAL IV SCH (15:01)
[2021-07-17] MEDS: LEVOFLOXACIN 750 MG TABLET PO SCH (20:26)
[2021-07-17] MEDS ORDERED: SIMVASTATIN 10 MG TABLET PO SCH (21:00)
[2021-07-18] MEDS: ALBUTEROL/IPRATROPIUM 3 ML NEB RESP TX SCH ×3 (00:40→14:14)
[2021-07-18 04:47] LABS: Basophils % 0.2 % (0.0-0.8); Eosinophils # 0.1 10*3/uL (0.0-0.87); Eosinophils % 0.4 % (0.00-10.9); Hematocrit 33.1 VOL% (35.7-47.0); Hemoglobin 10.3 GM/DL (12.0-16.0); Immature Granulocytes % 0.6 %; Immature Granulocytes Absolute 0.08 #; Lymphocytes # 2.2 10*3/uL (1.4-4.0); Lymphocytes % 16.8 % (21.3-54.2); Mean Corpuscular HGB Conc 31.1 GM/DL (32-36); Mean Corpuscular Volume 91.4 FL (87-102); Mean Platelet Volume 10.8 FL (9.6-12.0); Monocytes # 0.8 10*3/uL (0.11-0.8); Monocytes % 5.9 % (1.7-12.7); Neutrophils % 76.1 % (38.7-73.9); Platelet Count 229 T/CUMM (130-400); Red Blood Count 3.62 MC/CUMM (3.8-5.5); Red Cell Distribution Width 14.1 % (9.3-17.3); White Blood Count 12.8 T/CUMM (4-12)
[2021-07-18 05:02] LABS: Calcium 8.7 MG/DL (8.5-10.1); Potassium 3.8 MMOL/L (3.5-5.1)
[2021-07-18] MEDS: INSULIN LISPRO 100 UNIT/ML SUBCUT SCH ×3 (09:01→16:32)
[2021-07-18] MEDS ORDERED: DEXTROSE 10% 250 ML BAG IV PRN (09:28)
[2021-07-18] MEDS: metFORMIN 850 MG TABLET PO SCH (09:41)
[2021-07-18] MEDS: PANTOPRAZOLE 40 MG TABLET PO SCH (09:41)
[2021-07-18] MEDS: GABAPENTIN 300 MG CAPSULE PO SCH ×2 (09:41→16:32)
[2021-07-18] MEDS: LINACLOTIDE 145 MCG CAPSULE PO SCH (09:41)
[2021-07-18] MEDS: BUDESONIDE/FORMOTEROL 160-4.5 INHALER 6 GM INH SCH (09:41)
[2021-07-18] MEDS: QUEtiapine 100 MG TABLET PO SCH (09:42)
[2021-07-18] MEDS: levETIRAcetam 500 MG TABLET PO SCH (09:42)
[2021-07-18] MEDS: predniSONE 20 MG TABLET PO SCH (09:42)
[2021-07-18] MEDS: LOSARTAN 50 MG TABLET PO SCH (09:42)
[2021-07-18] MEDS: OXYBUTYNIN 5 MG TABLET PO SCH (09:42)
[2021-07-18] MEDS: amLODIPine 10 MG TABLET PO SCH (12:38)
[2021-07-18] MEDS: METOPROLOL SUCCINATE XL 25 MG TABLET PO SCH (12:38)
[2021-07-18 14:14] VITALS: BP 92/57
== END 2021-07-18 16:31 | disposition home or self-care (01) ==
LOC: EDBD → EDUNIT# → N.EDINP 19:28 → N.ED 19:28 → SUATTDRO 07-16 00:24 → N.EDINP 07-16 02:07 → N.TELEN 07-16 04:22
PROVIDERS: ADMIT Family Medicine; ATTEND Hospitalist

== ENCOUNTER 2021-07-27 21:27 | Inpatient (IN) ==
[2021-07-27] MEDS ORDERED: NITROGLYCERIN SL 0.4 MG TABLET SL PRN (21:59)
[2021-07-27] MEDS ORDERED: ASPIRIN 325 MG TABLET PO STA (21:59)
[2021-07-27] MEDS ORDERED: ACETAMINOPHEN 500 MG TABLET PO STA (22:02)
[2021-07-27 22:04] LABS: Basophils % 0.2 % (0.0-0.8); Eosinophils # 0.1 10*3/uL (0.0-0.87); Eosinophils % 0.8 % (0.00-10.9); Hemoglobin 11.5 GM/DL (12.0-16.0); Immature Granulocytes % 0.9 %; Immature Granulocytes Absolute 0.08 #; Lymphocytes # 2.2 10*3/uL (1.4-4.0); Lymphocytes % 25.6 % (21.3-54.2); Mean Corpuscular HGB Conc 31.1 GM/DL (32-36); Mean Corpuscular Volume 91.4 FL (87-102); Monocytes # 0.4 10*3/uL (0.11-0.8); Monocytes % 4.7 % (1.7-12.7); Neutrophils % 67.8 % (38.7-73.9); Platelet Count 263 T/CUMM (130-400); Red Blood Count 4.05 MC/CUMM (3.8-5.5); Red Cell Distribution Width 14.5 % (9.3-17.3); White Blood Count 8.7 T/CUMM (4-12)
[2021-07-27 22:31] LABS: Alanine Aminotransferase 12 U/L (13-56); Albumin 2.9 G/DL (3.4-5.0); Alkaline Phosphatase 106 U/L (45-117); Aspartate Amino Transferase 10 U/L (0-37); Bilirubin,Total < 0.39 MG/DL (0.20-1.00); Blood Urea Nitrogen 26 MG/DL (7-18); Calcium 9.3 MG/DL (8.5-10.1); Carbon Dioxide 30 MMOL/L (21-32); Chloride 104 MMOL/L (98-107); Glucose 149 MG/DL (74-106); Osmolality,Calculated 286.4 MOS/KG (273-304); Potassium 4.2 MMOL/L (3.5-5.1); Sodium 140 MMOL/L (136-145)
[2021-07-27] MEDS ORDERED: ALUM/MAG/SIMETH/LIDO VISC 1:1 30 ML BOTTLE PO ONE (22:54)
[2021-07-27] MEDS ORDERED: ALUM/MAG/SIMETH/LIDO VISC 1:1 30 ML BOTTLE PO STA (22:55)
[2021-07-27] MEDS ORDERED: MORPHINE 2 MG/1 ML SYRINGE IV PRN (23:53)
[2021-07-27] MEDS ORDERED: ONDANSETRON 4 MG/2 ML VIAL IV PRN (23:53)
[2021-07-27] MEDS ORDERED: GLUCAGON 1 MG VIAL IM PRN (23:53)
[2021-07-27] MEDS ORDERED: MAGNESIUM SULF RIDER 2 GM/50 ML PREMIX IV ONE (23:58)
[2021-07-28] MEDS ORDERED: DEXTROSE 10% 250 ML BAG IV PRN (00:15)
[2021-07-28] MEDS: SODIUM CHLORIDE 0.9% 1,000 ML IV SCH ×2 (02:03→20:30)
[2021-07-28] MEDS ORDERED: ALBUTEROL 1.25 MG/3 ML NEB RESP TX PRN (03:00)
[2021-07-28 07:16] LABS: Basophils % 0.2 % (0.0-0.8); Eosinophils % 0.1 % (0.00-10.9); Hematocrit 35.5 VOL% (35.7-47.0); Hemoglobin 11.2 GM/DL (12.0-16.0); Immature Granulocytes % 0.8 %; Immature Granulocytes Absolute 0.09 #; Lymphocytes # 1.4 10*3/uL (1.4-4.0); Lymphocytes % 11.5 % (21.3-54.2); Mean Corpuscular HGB Conc 31.5 GM/DL (32-36); Monocytes # 0.3 10*3/uL (0.11-0.8); Monocytes % 2.8 % (1.7-12.7); Neutrophils % 84.6 % (38.7-73.9); Platelet Count 275 T/CUMM (130-400); Red Cell Distribution Width 14.5 % (9.3-17.3); White Blood Count 11.9 T/CUMM (4-12)
[2021-07-28] MEDS: ALBUTEROL/IPRATROPIUM 3 ML NEB RESP TX SCH ×4 (07:32→23:45)
[2021-07-28 07:51] LABS: Alanine Aminotransferase 11 U/L (13-56); Alkaline Phosphatase 104 U/L (45-117); Aspartate Amino Transferase 8 U/L (0-37); Bilirubin,Total < 0.39 MG/DL (0.20-1.00); Blood Urea Nitrogen 27 MG/DL (7-18); Calcium 9.5 MG/DL (8.5-10.1); Glucose 129 MG/DL (74-106); Total Protein 7.1 G/DL (6.4-8.2)
[2021-07-28 08:02] LABS: Chloride 102 MMOL/L (98-107); Potassium 4.8 MMOL/L (3.5-5.1); Sodium 136 MMOL/L (136-145)
[2021-07-28 08:04] LABS: Carbon Dioxide 30 MMOL/L (21-32)
[2021-07-28] MEDS: ENOXAPARIN 40 MG/0.4 ML SYRINGE SUBCUT SCH (09:01)
[2021-07-28] MEDS: levETIRAcetam 500 MG TABLET PO SCH ×2 (09:02→22:43)
[2021-07-28] MEDS: SIMVASTATIN 10 MG TABLET PO SCH (09:02)
[2021-07-28] MEDS: METOPROLOL SUCCINATE XL 25 MG TABLET PO SCH (09:02)
[2021-07-28] MEDS: FUROSEMIDE 20 MG TABLET PO SCH (09:02)
[2021-07-28] MEDS: GABAPENTIN 300 MG CAPSULE PO SCH ×3 (09:02→22:42)
[2021-07-28] MEDS: QUEtiapine 100 MG TABLET PO SCH (09:02)
[2021-07-28] MEDS: INSULIN REGULAR 100 UNIT/ML SUBCUT SCH ×4 (09:03→22:44)
[2021-07-28] MEDS: PANTOPRAZOLE 40 MG TABLET PO SCH (09:03)
[2021-07-28] MEDS: LOSARTAN 50 MG TABLET PO SCH (09:03)
[2021-07-28] MEDS: amLODIPine 10 MG TABLET PO SCH (09:03)
[2021-07-28] MEDS: OXYBUTYNIN 5 MG TABLET PO SCH ×2 (09:03→22:43)
[2021-07-28] MEDS: BUDESONIDE/FORMOTEROL 160-4.5 INHALER 6 GM INH SCH ×2 (09:04→21:30)
[2021-07-28] MEDS: LINACLOTIDE 145 MCG CAPSULE PO SCH (09:05)
[2021-07-28] MEDS: cefTRIAXone 2,000 MG in SODIUM CHLORIDE 0.9% 100 ML IV SCH (10:46)
[2021-07-28] MEDS: methylPREDNISolone SOD SUC 40 MG/1 ML VIAL IV SCH ×2 (10:46→22:43)
[2021-07-28] MEDS: AZITHROMYCIN INJ 500 MG in SODIUM CHLORIDE 0.9% 250 ML IV SCH (12:18)
[2021-07-28] MEDS: NICOTINE 14 MG/24 HR PATCH TRANSDERM SCH (12:19)
[2021-07-29] MEDS: SODIUM CHLORIDE 0.9% 1,000 ML IV SCH (05:44)
[2021-07-29 05:47] LABS: Basophils % 0.1 % (0.0-0.8); Hematocrit 35.4 VOL% (35.7-47.0); Hemoglobin 10.9 GM/DL (12.0-16.0); Immature Granulocytes % 0.8 %; Immature Granulocytes Absolute 0.13 #; Lymphocytes # 0.9 10*3/uL (1.4-4.0); Mean Corpuscular HGB Conc 30.8 GM/DL (32-36); Mean Corpuscular Volume 91.5 FL (87-102); Mean Platelet Volume 11.3 FL (9.6-12.0); Monocytes # 0.2 10*3/uL (0.11-0.8); Monocytes % 1.1 % (1.7-12.7); Platelet Count 247 T/CUMM (130-400); Red Blood Count 3.87 MC/CUMM (3.8-5.5); Red Cell Distribution Width 14.5 % (9.3-17.3); White Blood Count 15.8 T/CUMM (4-12)
[2021-07-29 06:10] LABS: Calcium 8.5 MG/DL (8.5-10.1); Osmolality,Calculated 278.1 MOS/KG (273-304); Potassium 4.5 MMOL/L (3.5-5.1)
[2021-07-29 07:19] LABS: Lymphocytes 3 % (20-55); Total Cells Counted 100
[2021-07-29 07:20] LABS: Platelet Estimate Normal
[2021-07-29] MEDS: ALBUTEROL/IPRATROPIUM 3 ML NEB RESP TX SCH ×3 (08:00→23:13)
[2021-07-29] MEDS ORDERED: PNEUMOCOCCAL VACCINE (23 VALENT) 0.5 ML VIAL IM ONE (09:00)
[2021-07-29] MEDS: SIMVASTATIN 10 MG TABLET PO SCH (09:17)
[2021-07-29] MEDS: levETIRAcetam 500 MG TABLET PO SCH ×2 (09:17→21:42)
[2021-07-29] MEDS: METOPROLOL SUCCINATE XL 25 MG TABLET PO SCH (09:17)
[2021-07-29] MEDS: OXYBUTYNIN 5 MG TABLET PO SCH ×2 (09:18→21:43)
[2021-07-29] MEDS: LOSARTAN 50 MG TABLET PO SCH (09:18)
[2021-07-29] MEDS: QUEtiapine 100 MG TABLET PO SCH (09:18)
[2021-07-29] MEDS: GABAPENTIN 300 MG CAPSULE PO SCH ×3 (09:18→21:43)
[2021-07-29] MEDS: PANTOPRAZOLE 40 MG TABLET PO SCH (09:18)
[2021-07-29] MEDS: FUROSEMIDE 20 MG TABLET PO SCH (09:18)
[2021-07-29] MEDS: INSULIN REGULAR 100 UNIT/ML SUBCUT SCH ×4 (09:19→21:44)
[2021-07-29] MEDS: ENOXAPARIN 40 MG/0.4 ML SYRINGE SUBCUT SCH (09:19)
[2021-07-29] MEDS: methylPREDNISolone SOD SUC 40 MG/1 ML VIAL IV SCH ×2 (09:20→21:43)
[2021-07-29] MEDS: NICOTINE 14 MG/24 HR PATCH TRANSDERM SCH (09:20)
[2021-07-29] MEDS: BUDESONIDE/FORMOTEROL 160-4.5 INHALER 6 GM INH SCH ×2 (09:20→21:47)
[2021-07-29] MEDS: LINACLOTIDE 145 MCG CAPSULE PO SCH (09:20)
[2021-07-29] MEDS: amLODIPine 10 MG TABLET PO SCH (09:20)
[2021-07-29] MEDS: cefTRIAXone 2,000 MG in SODIUM CHLORIDE 0.9% 100 ML IV SCH (09:27)
[2021-07-29] MEDS: AZITHROMYCIN INJ 500 MG in SODIUM CHLORIDE 0.9% 250 ML IV SCH (10:27)
[2021-07-29] MEDS: HydrOXYzine PAMOATE 25 MG CAPSULE PO SCH ×2 (12:20→21:43)
[2021-07-30 06:11] LABS: Basophils % 0.2 % (0.0-0.8); Eosinophils % 0.1 % (0.00-10.9); Hematocrit 33.7 VOL% (35.7-47.0); Hemoglobin 10.5 GM/DL (12.0-16.0); Immature Granulocytes % 0.8 %; Immature Granulocytes Absolute 0.13 #; Lymphocytes # 2.8 10*3/uL (1.4-4.0); Lymphocytes % 18.1 % (21.3-54.2); Mean Corpuscular HGB Conc 31.2 GM/DL (32-36); Mean Corpuscular Volume 91.8 FL (87-102); Mean Platelet Volume 10.9 FL (9.6-12.0); Monocytes # 0.7 10*3/uL (0.11-0.8); Monocytes % 4.4 % (1.7-12.7); Neutrophils % 76.4 % (38.7-73.9); Platelet Count 257 T/CUMM (130-400); Red Blood Count 3.67 MC/CUMM (3.8-5.5); Red Cell Distribution Width 14.6 % (9.3-17.3); White Blood Count 15.4 T/CUMM (4-12)
[2021-07-30 06:23] LABS: Calcium 8.6 MG/DL (8.5-10.1); Osmolality,Calculated 277.7 MOS/KG (273-304); Potassium 4.3 MMOL/L (3.5-5.1)
[2021-07-30] MEDS: ALBUTEROL/IPRATROPIUM 3 ML NEB RESP TX SCH ×3 (07:30→23:46)
[2021-07-30] MEDS: INSULIN REGULAR 100 UNIT/ML SUBCUT SCH ×4 (09:08→22:36)
[2021-07-30] MEDS: LOSARTAN 50 MG TABLET PO SCH (09:08)
[2021-07-30] MEDS: GABAPENTIN 300 MG CAPSULE PO SCH ×3 (09:09→22:35)
[2021-07-30] MEDS: METOPROLOL SUCCINATE XL 25 MG TABLET PO SCH (09:09)
[2021-07-30] MEDS: OXYBUTYNIN 5 MG TABLET PO SCH ×2 (09:09→22:35)
[2021-07-30] MEDS: HydrOXYzine PAMOATE 25 MG CAPSULE PO SCH ×2 (09:09→22:35)
[2021-07-30] MEDS: SIMVASTATIN 10 MG TABLET PO SCH (09:09)
[2021-07-30] MEDS: ENOXAPARIN 40 MG/0.4 ML SYRINGE SUBCUT SCH (09:10)
[2021-07-30] MEDS: amLODIPine 10 MG TABLET PO SCH (09:10)
[2021-07-30] MEDS: QUEtiapine 100 MG TABLET PO SCH (09:10)
[2021-07-30] MEDS: PANTOPRAZOLE 40 MG TABLET PO SCH (09:10)
[2021-07-30] MEDS: FUROSEMIDE 20 MG TABLET PO SCH (09:10)
[2021-07-30] MEDS: levETIRAcetam 500 MG TABLET PO SCH ×2 (09:10→22:36)
[2021-07-30] MEDS: LINACLOTIDE 145 MCG CAPSULE PO SCH (09:11)
[2021-07-30] MEDS: methylPREDNISolone SOD SUC 40 MG/1 ML VIAL IV SCH (09:11)
[2021-07-30] MEDS: NICOTINE 14 MG/24 HR PATCH TRANSDERM SCH (09:11)
[2021-07-30] MEDS: BUDESONIDE/FORMOTEROL 160-4.5 INHALER 6 GM INH SCH ×2 (09:12→22:38)
[2021-07-30] MEDS: cefTRIAXone 2,000 MG in SODIUM CHLORIDE 0.9% 100 ML IV SCH (09:19)
[2021-07-30] MEDS: AZITHROMYCIN INJ 500 MG in SODIUM CHLORIDE 0.9% 250 ML IV SCH (10:08)
[2021-07-30] MEDS ORDERED: POLYETHYLENE GLYCOL POWDER 17 GM PACK PO PRN (12:00)
[2021-07-31 05:58] LABS: Basophils % 0.1 % (0.0-0.8); Eosinophils % 0.1 % (0.00-10.9); Hematocrit 33.5 VOL% (35.7-47.0); Hemoglobin 10.3 GM/DL (12.0-16.0); Immature Granulocytes % 0.8 %; Immature Granulocytes Absolute 0.11 #; Lymphocytes # 2.4 10*3/uL (1.4-4.0); Lymphocytes % 17.6 % (21.3-54.2); Mean Corpuscular HGB Conc 30.7 GM/DL (32-36); Mean Corpuscular Volume 92.3 FL (87-102); Mean Platelet Volume 11.5 FL (9.6-12.0); Monocytes # 0.8 10*3/uL (0.11-0.8); Monocytes % 6.1 % (1.7-12.7); Neutrophils % 75.3 % (38.7-73.9); Platelet Count 250 T/CUMM (130-400); Red Blood Count 3.63 MC/CUMM (3.8-5.5); Red Cell Distribution Width 14.8 % (9.3-17.3); White Blood Count 13.6 T/CUMM (4-12)
[2021-07-31 06:18] LABS: Calcium 8.8 MG/DL (8.5-10.1); Osmolality,Calculated 282.4 MOS/KG (273-304); Potassium 4.4 MMOL/L (3.5-5.1)
[2021-07-31] MEDS: ALBUTEROL/IPRATROPIUM 3 ML NEB RESP TX SCH (07:17)
[2021-07-31] MEDS: INSULIN REGULAR 100 UNIT/ML SUBCUT SCH ×2 (08:01→11:54)
[2021-07-31] MEDS ORDERED: predniSONE 20 MG TABLET PO SCH (09:00)
[2021-07-31] MEDS: LINACLOTIDE 145 MCG CAPSULE PO SCH (09:03)
[2021-07-31] MEDS: OXYBUTYNIN 5 MG TABLET PO SCH (09:04)
[2021-07-31] MEDS: levETIRAcetam 500 MG TABLET PO SCH (09:04)
[2021-07-31] MEDS: PANTOPRAZOLE 40 MG TABLET PO SCH (09:04)
[2021-07-31] MEDS: amLODIPine 10 MG TABLET PO SCH (09:05)
[2021-07-31] MEDS: METOPROLOL SUCCINATE XL 25 MG TABLET PO SCH (09:05)
[2021-07-31] MEDS: QUEtiapine 100 MG TABLET PO SCH (09:05)
[2021-07-31] MEDS: GABAPENTIN 300 MG CAPSULE PO SCH (09:05)
[2021-07-31] MEDS: FUROSEMIDE 20 MG TABLET PO SCH (09:06)
[2021-07-31] MEDS: HydrOXYzine PAMOATE 25 MG CAPSULE PO SCH (09:06)
[2021-07-31] MEDS: LOSARTAN 50 MG TABLET PO SCH (09:06)
[2021-07-31] MEDS: NICOTINE 14 MG/24 HR PATCH TRANSDERM SCH (09:07)
[2021-07-31] MEDS: SIMVASTATIN 10 MG TABLET PO SCH (09:07)
[2021-07-31] MEDS: ENOXAPARIN 40 MG/0.4 ML SYRINGE SUBCUT SCH (09:09)
[2021-07-31] MEDS: BUDESONIDE/FORMOTEROL 160-4.5 INHALER 6 GM INH SCH (09:11)
[2021-07-31] MEDS: cefTRIAXone 2,000 MG in SODIUM CHLORIDE 0.9% 100 ML IV SCH (09:16)
[2021-07-31] MEDS ORDERED: AZITHROMYCIN 250 MG TABLET PO SCH (10:00)
[2021-07-31 12:20] VITALS: BP 138/59
== END 2021-07-31 14:00 | disposition home or self-care (01) | DRG 140 ==
LOC: EDUNIT# → EDBD → N.5E 21:27 → N.ED 21:27 → N.5E 07-28 02:53 → SUATTDRO 07-28 09:38
PROVIDERS: ADMIT Hospitalist; ATTEND Internal Medicine

== ENCOUNTER 2021-09-19 13:56 | Observation (INO) ==
[2021-09-19 14:26] LABS: Basophils % 0.3 % (0.0-0.8); Eosinophils # 0.2 10*3/uL (0.0-0.87); Eosinophils % 3.3 % (0.00-10.9); Hematocrit 33.8 VOL% (35.7-47.0); Hemoglobin 10.6 GM/DL (12.0-16.0); Immature Granulocytes % 0.5 %; Immature Granulocytes Absolute 0.03 #; Lymphocytes # 1.5 10*3/uL (1.4-4.0); Lymphocytes % 23.6 % (21.3-54.2); Mean Corpuscular HGB Conc 31.4 GM/DL (32-36); Mean Corpuscular Volume 91.4 FL (87-102); Mean Platelet Volume 10.8 FL (9.6-12.0); Monocytes # 0.3 10*3/uL (0.11-0.8); Monocytes % 5.3 % (1.7-12.7); Platelet Count 195 T/CUMM (130-400); Red Cell Distribution Width 14.4 % (9.3-17.3); White Blood Count 6.4 T/CUMM (4-12)
[2021-09-19] MEDS ORDERED: ASPIRIN 325 MG TABLET PO STA (14:33)
[2021-09-19] MEDS ORDERED: NITROGLYCERIN 2% OINT 1 INCH/GM PACK TOP STA (14:33)
[2021-09-19] MEDS ORDERED: FUROSEMIDE 40 MG/4 ML VIAL IV STA (14:34)
[2021-09-19 14:52] LABS: Alanine Aminotransferase 17 U/L (13-56); Albumin 2.8 G/DL (3.4-5.0); Alkaline Phosphatase 93 U/L (45-117); Aspartate Amino Transferase 14 U/L (0-37); Bilirubin,Total < 0.39 MG/DL (0.20-1.00); Blood Urea Nitrogen 19 MG/DL (7-18); Calcium 8.4 MG/DL (8.5-10.1); Carbon Dioxide 31 MMOL/L (21-32); Chloride 103 MMOL/L (98-107); Glucose 149 MG/DL (74-106); Osmolality,Calculated 285.3 MOS/KG (273-304); Potassium 3.4 MMOL/L (3.5-5.1); Sodium 141 MMOL/L (136-145); Total Protein 6.7 G/DL (6.4-8.2)
[2021-09-19] MEDS ORDERED: MORPHINE 2 MG/1 ML SYRINGE IV STA (15:12)
[2021-09-19] MEDS ORDERED: ONDANSETRON 4 MG/2 ML VIAL IV STA (15:12)
[2021-09-19] MEDS ORDERED: ONDANSETRON 4 MG/2 ML VIAL ONE (15:13)
[2021-09-19] MEDS ORDERED: MORPHINE 2 MG/1 ML SYRINGE ONE (15:13)
[2021-09-19 15:16] LABS: Urine Appearance Clear (Clear); Urine Color Yellow (Yellow)
[2021-09-19 15:17] LABS: Bilirubin,Urine Negative (Negative); Blood, Urine Negative (Negative); Glucose,Urine (UA) Negative (Negative); Ketones,Urine Negative (Negative); Nitrite,Urine Negative (Negative); Protein,Urine Negative (Negative); Urine Specific Gravity 1.015 (1.001-1.035); Urine Urobilinogen 0.2 eU/dL (<2.0); Urine pH 5.5 (4.5-8.0)
[2021-09-19 15:27] LABS: Bacteria,Urine Moderate /HPF (Few); Mucus,Urine Occasional /LPF (Occasional); Squamous Epithelial Cell,Urine Moderate /HPF (0-10)
[2021-09-19 15:48] LABS: Barbiturates Screen,Urine Negative (Negative); Benzodiazepines Screen,Urine Negative (Negative); Cannabinoid Screen,Urine Negative (Negative); Opiate Screen,Urine Negative (Negative); Phencyclidine Screen,Urine Negative (Negative)
[2021-09-19 16:50] LABS: INR 0.9; PT Patient Result 10.5 SECS (10.1-12.1); Partial Thromboplastin Time 27.9 SECS (23.7-32.9)
[2021-09-19] MEDS ORDERED: ACETAMINOPHEN 325 MG TABLET PO PRN (19:33)
[2021-09-19] MEDS ORDERED: GLUCAGON 1 MG VIAL IM PRN (19:33)
[2021-09-19] MEDS ORDERED: ONDANSETRON 4 MG/2 ML VIAL IV PRN (19:33)
[2021-09-19] MEDS ORDERED: ALUM/MAG/SIMETH/LIDO VISC 1:1 30 ML BOTTLE PO ONE (19:40)
[2021-09-19] MEDS ORDERED: DEXTROSE 10% 250 ML BAG IV PRN (19:44)
[2021-09-19] MEDS ORDERED: METHOCARBAMOL 750 MG TABLET PO PRN (20:00)
[2021-09-19 20:48] LABS: Bilirubin,Urine Negative (Negative); Blood, Urine Negative (Negative); Glucose,Urine (UA) Negative (Negative); Ketones,Urine Negative (Negative); Nitrite,Urine Negative (Negative); Protein,Urine Negative (Negative); Urine Appearance Clear (Clear); Urine Color Yellow (Yellow); Urine Urobilinogen 0.2 eU/dL (<2.0); Urine pH 5.5 (4.5-8.0)
[2021-09-19 20:54] LABS: Bacteria,Urine Moderate /HPF (Few); Mucus,Urine Occasional /LPF (Occasional); Squamous Epithelial Cell,Urine Many /HPF (0-10)
[2021-09-19] MEDS: INSULIN REGULAR 100 UNIT/ML SUBCUT SCH (21:06)
[2021-09-19] MEDS: SIMVASTATIN 20 MG TABLET PO SCH (21:56)
[2021-09-19] MEDS: QUEtiapine 100 MG TABLET PO SCH (21:56)
[2021-09-19] MEDS: ENOXAPARIN 40 MG/0.4 ML SYRINGE SUBCUT SCH (21:56)
[2021-09-19] MEDS: levETIRAcetam 500 MG TABLET PO SCH (21:56)
[2021-09-19] MEDS: GABAPENTIN 300 MG CAPSULE PO SCH (21:56)
[2021-09-19] MEDS: LABETALOL 100 MG TABLET PO SCH (21:56)
[2021-09-19] MEDS ORDERED: ALBUTEROL 1.25 MG/3 ML NEB RESP TX PRN (23:00)
[2021-09-19] MEDS: BUDESONIDE/FORMOTEROL 160-4.5 INHALER 6 GM INH SCH (23:18)
[2021-09-20] MEDS: ALBUTEROL/IPRATROPIUM 3 ML NEB RESP TX SCH ×4 (00:01→19:57)
[2021-09-20] MEDS ORDERED: MORPHINE 2 MG/1 ML SYRINGE IV PRN (04:39)
[2021-09-20 05:25] LABS: Basophils % 0.2 % (0.0-0.8); Eosinophils # 0.2 10*3/uL (0.0-0.87); Eosinophils % 3.8 % (0.00-10.9); Hematocrit 33.5 VOL% (35.7-47.0); Hemoglobin 10.4 GM/DL (12.0-16.0); Immature Granulocytes % 0.6 %; Immature Granulocytes Absolute 0.03 #; Lymphocytes # 1.6 10*3/uL (1.4-4.0); Lymphocytes % 32.3 % (21.3-54.2); Mean Corpuscular Volume 91.8 FL (87-102); Monocytes # 0.3 10*3/uL (0.11-0.8); Monocytes % 6.9 % (1.7-12.7); Neutrophils % 56.2 % (38.7-73.9); Platelet Count 190 T/CUMM (130-400); Red Blood Count 3.65 MC/CUMM (3.8-5.5); Red Cell Distribution Width 14.4 % (9.3-17.3)
[2021-09-20 05:41] LABS: Alanine Aminotransferase 18 U/L (13-56); Albumin 2.9 G/DL (3.4-5.0); Alkaline Phosphatase 95 U/L (45-117); Aspartate Amino Transferase 14 U/L (0-37); Bilirubin,Total < 0.39 MG/DL (0.20-1.00); Blood Urea Nitrogen 19 MG/DL (7-18); Calcium 9.4 MG/DL (8.5-10.1); Carbon Dioxide 37 MMOL/L (21-32); Chloride 100 MMOL/L (98-107); Cholesterol 208 MG/DL (50-200); Glucose 120 MG/DL (74-106); HDL Cholesterol 48 MG/DL (40-60); Osmolality,Calculated 285.1 MOS/KG (273-304); Potassium 3.6 MMOL/L (3.5-5.1); Risk Ratio 4.33; Sodium 142 MMOL/L (136-145); Triglycerides 170 MG/DL (2-150)
[2021-09-20] MEDS: INSULIN REGULAR 100 UNIT/ML SUBCUT SCH ×4 (08:08→21:35)
[2021-09-20] MEDS ORDERED: REGADENOSON 0.4 MG/5 ML SYRINGE IV ONE (08:34)
[2021-09-20] MEDS: GABAPENTIN 300 MG CAPSULE PO SCH ×3 (10:53→21:35)
[2021-09-20] MEDS: VENLAFAXINE XR 75 MG CAPSULE PO SCH (10:54)
[2021-09-20] MEDS: PANTOPRAZOLE 40 MG TABLET PO SCH (10:54)
[2021-09-20] MEDS: levETIRAcetam 500 MG TABLET PO SCH ×2 (10:54→21:35)
[2021-09-20] MEDS: ASPIRIN CHEW 81 MG TABLET PO SCH (10:54)
[2021-09-20] MEDS: FUROSEMIDE 20 MG TABLET PO SCH (10:54)
[2021-09-20] MEDS: LABETALOL 100 MG TABLET PO SCH ×2 (10:54→21:35)
[2021-09-20] MEDS: BUDESONIDE/FORMOTEROL 160-4.5 INHALER 6 GM INH SCH ×2 (10:55→21:36)
[2021-09-20] MEDS: LINACLOTIDE 145 MCG CAPSULE PO SCH (10:55)
[2021-09-20] MEDS ORDERED: MAGNESIUM SULF RIDER 2 GM/50 ML PREMIX IV ONE (12:16)
[2021-09-20] MEDS: ENOXAPARIN 40 MG/0.4 ML SYRINGE SUBCUT SCH (21:36)
[2021-09-20] MEDS: SIMVASTATIN 20 MG TABLET PO SCH (21:36)
[2021-09-20] MEDS: QUEtiapine 100 MG TABLET PO SCH (21:36)
[2021-09-21] MEDS: ALBUTEROL/IPRATROPIUM 3 ML NEB RESP TX SCH ×4 (00:05→19:05)
[2021-09-21 06:32] LABS: Basophils % 0.3 % (0.0-0.8); Eosinophils # 0.2 10*3/uL (0.0-0.87); Eosinophils % 2.6 % (0.00-10.9); Hemoglobin 11.6 GM/DL (12.0-16.0); Immature Granulocytes % 0.7 %; Immature Granulocytes Absolute 0.05 #; Lymphocytes % 14.6 % (21.3-54.2); Mean Corpuscular HGB Conc 30.5 GM/DL (32-36); Mean Corpuscular Volume 92.7 FL (87-102); Mean Platelet Volume 11.7 FL (9.6-12.0); Monocytes # 0.3 10*3/uL (0.11-0.8); Monocytes % 4.6 % (1.7-12.7); Neutrophils % 77.2 % (38.7-73.9); Platelet Count 199 T/CUMM (130-400); Red Cell Distribution Width 14.5 % (9.3-17.3); White Blood Count 6.9 T/CUMM (4-12)
[2021-09-21 06:39] LABS: Alanine Aminotransferase 13 U/L (13-56); Albumin 3.2 G/DL (3.4-5.0); Alkaline Phosphatase 97 U/L (45-117); Aspartate Amino Transferase 16 U/L (0-37); Bilirubin,Total < 0.39 MG/DL (0.20-1.00); Blood Urea Nitrogen 15 MG/DL (7-18); Carbon Dioxide 32 MMOL/L (21-32); Chloride 101 MMOL/L (98-107); Glucose 148 MG/DL (74-106); Osmolality,Calculated 280.5 MOS/KG (273-304); Sodium 139 MMOL/L (136-145); Total Protein 6.7 G/DL (6.4-8.2)
[2021-09-21] MEDS ORDERED: DEXTROSE 50% 25 GM/50 ML VIAL IV PRN (07:10)
[2021-09-21] MEDS: INSULIN REGULAR 100 UNIT/ML SUBCUT SCH ×4 (07:58→20:58)
[2021-09-21] MEDS ORDERED: ALUM/MAG/SIMETH/LIDO VISC 1:1 30 ML BOTTLE PO ONE (08:30)
[2021-09-21] MEDS: FUROSEMIDE 20 MG TABLET PO SCH (09:28)
[2021-09-21] MEDS: ASPIRIN CHEW 81 MG TABLET PO SCH (09:28)
[2021-09-21] MEDS: GABAPENTIN 300 MG CAPSULE PO SCH ×3 (09:28→20:58)
[2021-09-21] MEDS: PANTOPRAZOLE 40 MG TABLET PO SCH (09:28)
[2021-09-21] MEDS: LABETALOL 100 MG TABLET PO SCH (09:28)
[2021-09-21] MEDS: levETIRAcetam 500 MG TABLET PO SCH ×2 (09:28→20:58)
[2021-09-21] MEDS: VENLAFAXINE XR 75 MG CAPSULE PO SCH (09:30)
[2021-09-21] MEDS: LINACLOTIDE 145 MCG CAPSULE PO SCH (09:32)
[2021-09-21] MEDS: amLODIPine 10 MG TABLET PO SCH (09:33)
[2021-09-21] MEDS: BUDESONIDE/FORMOTEROL 160-4.5 INHALER 6 GM INH SCH ×2 (09:35→20:59)
[2021-09-21] MEDS: carvediloL 12.5 MG TABLET PO SCH (16:24)
[2021-09-21] MEDS: ENOXAPARIN 40 MG/0.4 ML SYRINGE SUBCUT SCH (20:57)
[2021-09-21] MEDS: QUEtiapine 100 MG TABLET PO SCH (20:59)
[2021-09-21] MEDS: SIMVASTATIN 20 MG TABLET PO SCH (20:59)
[2021-09-22] MEDS: ALBUTEROL/IPRATROPIUM 3 ML NEB RESP TX SCH ×3 (00:28→12:45)
[2021-09-22 04:34] LABS: Basophils % 0.4 % (0.0-0.8); Eosinophils # 0.3 10*3/uL (0.0-0.87); Eosinophils % 4.6 % (0.00-10.9); Hematocrit 37.2 VOL% (35.7-47.0); Hemoglobin 11.2 GM/DL (12.0-16.0); Immature Granulocytes % 0.5 %; Immature Granulocytes Absolute 0.03 #; Lymphocytes # 1.5 10*3/uL (1.4-4.0); Lymphocytes % 27.1 % (21.3-54.2); Mean Corpuscular HGB Conc 30.1 GM/DL (32-36); Mean Corpuscular Volume 93.2 FL (87-102); Mean Platelet Volume 10.7 FL (9.6-12.0); Monocytes # 0.4 10*3/uL (0.11-0.8); Monocytes % 7.2 % (1.7-12.7); Neutrophils % 60.2 % (38.7-73.9); Platelet Count 216 T/CUMM (130-400); Red Blood Count 3.99 MC/CUMM (3.8-5.5); Red Cell Distribution Width 14.3 % (9.3-17.3); White Blood Count 5.7 T/CUMM (4-12)
[2021-09-22 05:10] LABS: Alanine Aminotransferase 12 U/L (13-56); Alkaline Phosphatase 98 U/L (45-117); Aspartate Amino Transferase 25 U/L (0-37); Bilirubin,Total < 0.39 MG/DL (0.20-1.00); Blood Urea Nitrogen 14 MG/DL (7-18); Calcium 9.6 MG/DL (8.5-10.1); Carbon Dioxide 36 MMOL/L (21-32); Chloride 100 MMOL/L (98-107); Glucose 122 MG/DL (74-106); Osmolality,Calculated 276.7 MOS/KG (273-304); Potassium 4.3 MMOL/L (3.5-5.1); Sodium 138 MMOL/L (136-145)
[2021-09-22] MEDS: INSULIN REGULAR 100 UNIT/ML SUBCUT SCH ×2 (09:03→12:29)
[2021-09-22] MEDS: VENLAFAXINE XR 75 MG CAPSULE PO SCH (12:28)
[2021-09-22] MEDS: GABAPENTIN 300 MG CAPSULE PO SCH (12:28)
[2021-09-22] MEDS: levETIRAcetam 500 MG TABLET PO SCH (12:28)
[2021-09-22] MEDS: ASPIRIN CHEW 81 MG TABLET PO SCH (12:28)
[2021-09-22] MEDS: LINACLOTIDE 145 MCG CAPSULE PO SCH (12:28)
[2021-09-22] MEDS: FUROSEMIDE 20 MG TABLET PO SCH (12:28)
[2021-09-22] MEDS: carvediloL 12.5 MG TABLET PO SCH (12:28)
[2021-09-22] MEDS: BUDESONIDE/FORMOTEROL 160-4.5 INHALER 6 GM INH SCH (12:29)
[2021-09-22] MEDS: PANTOPRAZOLE 40 MG TABLET PO SCH (12:29)
[2021-09-22] MEDS: amLODIPine 10 MG TABLET PO SCH (12:29)
[2021-09-22 13:17] VITALS: BP 120/77
== END 2021-09-22 13:25 | disposition home health service (06) ==
LOC: N.ED 13:56 → N.EDINP 13:56 → SUATTDRO 19:32 → N.TELEN 21:53
PROVIDERS: ADMIT Internal Medicine; ATTEND Family Medicine